=== PATIENT | male | born 1955 | race Caucasian/White ===

== ENCOUNTER 2019-04-27 20:41 | Emergency (ER) | payer OTHER | END 2019-04-27 22:00 | disposition left against medical advice (07) | LOC: ER 20:41 | DX: M79.603 Pain in arm, unspecified (principal); Z53.21 Procedure and treatment not carried out due to patient leaving prior to being seen by health care provider ==

== ENCOUNTER 2019-11-27 02:33 | Emergency (ER) | payer OTHER ==
[~2019-11-27] VITALS: Ht 170.2 cm; Wt 103.0 kg
[2019-11-27 02:40] VITALS: BP 107/91
== END 2019-11-27 04:45 | disposition left against medical advice (07) ==
LOC: ER 02:33
DX: S40.012A Contusion of left shoulder, initial encounter (principal); S90.31XA Contusion of right foot, initial encounter; E11.9 Type 2 diabetes mellitus without complications; V43.92XA Unspecified car occupant injured in collision with other type car in traffic accident, initial encounter; Y93.89 Activity, other specified; Y92.89 Other specified places as the place of occurrence of the external cause; Y99.8 Other external cause status
CPT/HCPCS: 73030; 73600; 73620; 99284